=== PATIENT | female | born 1995 | race Caucasian/White ===

== ENCOUNTER 2019-12-15 17:54 | Outpatient (REF) | payer SELFPAY | END 2019-12-15 17:55 | disposition home or self-care (01) | LOC: HO.LAB 17:54 | PROVIDERS: Visit Provider Internal Medicine | DX: Z20.828 Contact with and (suspected) exposure to other viral communicable diseases (principal) | CPT/HCPCS: C9803; U0003 ==

== ENCOUNTER 2022-09-15 15:20 | Outpatient (REF) | payer MEDICAID, SELFPAY ==
[2022-09-15 17:44] LABS: MANUAL DIFF FLAG NO
[2022-09-15 17:58] LABS: Basophils Absolute Auto 0.1 X10*3/uL (0.0-0.2); Basophils Percent Auto 0.6 % (0-2); Eosinophils Absolute Auto 0.1 X10*3/uL (0.0-0.4); Eosinophils Percent Auto 0.5 % (0-4); Hematocrit 44.4 % (37.0-47.0); Hemoglobin 14.4 g/dl (12.0-16.0); Imm Gran Abs Auto 0.01 X10*3/uL (0.00-0.03); Imm Gran Pct Auto 0.1 % (0.0-0.4); Lymphocytes Absolute Auto 2.4 X10*3/uL (1.2-4.9); Lymphocytes Percent Auto 25.3 % (20-40); Mean Corpuscular HGB Conc 32.4 g/dl (31.0-35.0); Mean Corpuscular Hemoglobin 29.7 pg (27.0-33.0); Mean Corpuscular Volume 91.5 fL (80.0-98.0); Mean Platelet Volume 11.3 fL (9.4-12.3); Monocytes Absolute Auto 0.9 X10*3/uL (0.1-1.2); Monocytes Percent Auto 9.9 % (2-11); Neutrophils Absolute Auto 5.9 x10*3/uL (2.0-8.3); Neutrophils Percent Auto 63.6 % (45-73); Platelet Count 362 X10*3/uL (160-400); Red Blood Count 4.85 X10*6/uL (4.20-5.50); Red Cell Distribution Width 12.8 % (11.0-16.0); White Blood Count 9.3 X10*3/uL (4.8-10.8)
[2022-09-15 18:14] LABS: Alanine Aminotransferase 40 U/L (0-31); Albumin Level 4.3 g/dL (3.5-5.0); Alkaline Phosphatase 78 U/L (39-117); Anion Gap 15 (12-20); Aspartate Amino Transferase 28 U/L (5-31); Bilirubin Total 0.4 mg/dL (0.0-1.0); Blood Urea Nitrogen 11 mg/dL (9-16); Calcium 10.1 mg/dL (8.4-10.2); Carbon Dioxide 23 mmol/L (22-29); Chloride 107 mmol/L (96-108); Cholesterol 162 mg/dL; Estimated Glomerular Filt Rate > 60; Glucose Fasting 77 mg/dL (60-99); HDL Cholesterol 43 mg/dL; LDL Cholesterol Calculated 103 mg/dl; Potassium 3.8 mmol/L (3.3-5.1); Sodium 141 mmol/L (135-145); Total Protein 7.9 g/dL (6.5-8.0); Triglycerides 83 mg/dL
[2022-09-15 18:29] LABS: TSH reflex Free T4 0.86 uIU/mL (0.32-4.0)
[2022-09-21 10:48] LABS: Testosterone, Free 11.9 pg/mL (0.1-6.4); Testosterone, Total 76 ng/dL (2-45)
== END 2022-09-15 15:21 | disposition home or self-care (01) ==
LOC: HO.CHCLDS 15:20
PROVIDERS: Visit Provider Family Medicine
DX: E66.01 Morbid (severe) obesity due to excess calories (principal); Z68.43 Body mass index [BMI] 50.0-59.9, adult; N93.9 Abnormal uterine and vaginal bleeding, unspecified
CPT/HCPCS: 36415; 80053; 80061; 84146; 84402; 84403; 84443; 85025

== ENCOUNTER 2022-10-17 15:39 | Outpatient (REF) | payer MEDICAID, SELFPAY ==
[2022-10-17 20:57] LABS: Alanine Aminotransferase 34 U/L (0-31); Albumin Level 3.7 g/dL (3.5-5.0); Alkaline Phosphatase 76 U/L (39-117); Anion Gap 16 (12-20); Aspartate Amino Transferase 27 U/L (5-31); Bilirubin Total 0.3 mg/dL (0.0-1.0); Blood Urea Nitrogen 8 mg/dL (9-16); Carbon Dioxide 22 mmol/L (22-29); Chloride 107 mmol/L (96-108); Estimated Glomerular Filt Rate > 60; Glucose Random 57 mg/dL (60-115); Potassium 3.5 mmol/L (3.3-5.1); Sodium 141 mmol/L (135-145); Total Protein 7.7 g/dL (6.5-8.0)
[2022-10-21 03:34] LABS: HPV mRNA E6/E7 rflx Not Detected (Not Detected)
== END 2022-10-17 15:40 | disposition home or self-care (01) ==
LOC: HO.CHCLDS 15:39
PROVIDERS: Visit Provider Family Medicine
DX: Z12.4 Encounter for screening for malignant neoplasm of cervix (principal); Z11.51 Encounter for screening for human papillomavirus (HPV); R74.01 Elevation of levels of liver transaminase levels
CPT/HCPCS: 36415; 80053; 87624; 88142

== ENCOUNTER 2022-10-20 14:48 | Outpatient (REF) | payer MEDICAID, SELFPAY ==
[2022-10-20 17:52] LABS: Gamma Glutamyl Transpeptidase 55 U/L (7-33); Glucose Random 80 mg/dL (60-115)
[2022-10-21 04:08] LABS: HBsAGNum1 0.35 S/CO (0.00-0.99); Hepatitis B Surface Antigen Negative (Negative); ~HepC Num1 0.07 S/CO (0.00-0.79); ~Hepatitis C Antibody Nonreactive (Nonreactive)
== END 2022-10-20 14:49 | disposition home or self-care (01) ==
LOC: HO.CHCLDS 14:48
PROVIDERS: Visit Provider Family Medicine
DX: R74.01 Elevation of levels of liver transaminase levels (principal)
CPT/HCPCS: 36415; 82947; 82977; 86803; 87340

== ENCOUNTER 2022-11-14 09:33 | Outpatient (REF) | payer MEDICAID, SELFPAY | END 2022-11-14 09:34 | disposition home or self-care (01) | LOC: HO.US 09:33 | PROVIDERS: Visit Provider Family Medicine | DX: R74.01 Elevation of levels of liver transaminase levels (principal) | CPT/HCPCS: 76700 ==

== ENCOUNTER 2023-04-30 18:20 | Outpatient (REF) | payer MEDICAID, SELFPAY ==
[2023-05-01 07:00] LABS: CT PCR NOT DETECTED (Not Detect.); NG PCR NOT DETECTED (Not Detect.)
== END 2023-04-30 18:21 | disposition home or self-care (01) ==
LOC: HO.HHCLNP 18:20
PROVIDERS: Visit Provider Advanced Practice Midwife
DX: Z11.3 Encounter for screening for infections with a predominantly sexual mode of transmission (principal)
CPT/HCPCS: 0353U

== ENCOUNTER 2024-07-07 15:17 | Outpatient (REF) | payer MEDICAID, SELFPAY ==
--- OUTSIDE RECORDS SUMMARY | 2024-07-07 16:29 | XMS_ITS | Encounter Summary ---
Author Organization [employer] Address [address] [place] [address] Care Team Providers Care Chemic Mangler Name Role Phone Angle Higgins MD Primary Care Provider [phone] Encounter Details Date Type Department Care Team ([facility] Contact Info) Description 09/25/2023 Orders Only [facility] CHC MED & PEDS [address] [place], [place] [phone] Angle Higgins MD [address] [place], [place] [phone] Social History Tobacco Use Types Packs/Day Years Used Date Smoking Tobacco: Never Passive Smoke Exposure: Never Smokeless Tobacco: Never Alcohol Use Standard Drinks/Week Comments Never 0 (1 standard drink = 0.6 oz pur e alcohol) Depression Answer Date Recorded Patient Health Questionnaire-9 Score 0 09/15/2022 Housing Stability Answer Date Recorded What is your housing situation today? I have donovanberry roe 11/29/[address] you li ve. Do you have problems with any of the following? None of the above 11/29/2022 Food Insecurity Answer Date Recorded Within the past 12 months, y ou worried that your food would run out before you got money to buy more: Never True 11/29/2022 Within the past 12 months,th e food you bought just didn't last and you didn't have enough money to get more: Never True Transportation Answer Date Recorded In the past 12 months, has l ack of transportation kept you from medical appts, meetings, work or from getting things needed for daily living? No 11/29/2022 Utilities Answer Date Recorded In the past 12 months, has t he electric, gas, oil or water [employer] threatened to shut off services in your home? No 11/29/2022 Depression Answer Date Recorded Patient Health Questionnaire-2 Score 0 09/15/2022 Comments Unknown Sex and Gender Information Value Date Recorded Sex Assigned at Female 12/05/2021 10:17 AM EDT Legal Sex Female 10:17 AM EDT Gender Identity Female 12/05/2021 10:17 AM EDT Sexual Orientation Bisexual 12/05/2021 10 :17 AM EDT documented as of this encounter Plan of Treatment Upcoming Encounters Date Type Department Care Team (Late st Contact Info) Description 07/17/2024 1:15 PM EDT Office Visit [facility] MEDICINE [address] [place] [address] Lena Worthington CNM [address] [place] [address] 07/25/2024 2:00 PM EDT Office Visit [facility] CHC ADULT DENTAL [address] [place] [address] Guillermo Durand documented as of this encounter Visit Diagnoses Not on filedocumented in this encounter Additional Health Concerns Assessment Noted Time PHQ-9 Depression Total Score: 0 09/16/19 23 2:44 PM EDT documented as of this encounter Care Teams Chemic Mangler Relationship Specialty Start Date End Date Angle Higgins MD [address] [place] [id number] PCP - General Family Medicine 04/25/21 documented as of this encounter
[2024-07-07 17:36] LABS: MANUAL DIFF FLAG NO
[2024-07-07 18:09] LABS: Alanine Aminotransferase 23 U/L (0-31); Alkaline Phosphatase 75 U/L (39-117); Anion Gap 13 (12-20); Aspartate Amino Transferase 33 U/L (5-31); Bilirubin Total 0.3 mg/dL (0.0-1.0); Blood Urea Nitrogen 13 mg/dL (9-16); Calcium 9.4 mg/dL (8.4-10.2); Carbon Dioxide 21 mmol/L (22-29); Chloride 111 mmol/L (96-108); Estimated Glomerular Filt Rate > 60; Glucose Random 82 mg/dL (60-115); Sodium 141 mmol/L (135-145); Total Protein 7.5 g/dL (6.5-8.0)
[2024-07-07 18:26] LABS: TSH reflex Free T4 0.87 uIU/mL (0.32-4.0)
[2024-07-07 18:42] LABS: Insulin 12 uU/mL (2-29)
[2024-07-07 19:21] LABS: Basophils Percent Auto 0.5 % (0-2); Eosinophils Absolute Auto 0.1 X10*3/uL (0.0-0.4); Eosinophils Percent Auto 0.7 % (0-4); Hematocrit 41.4 % (37.0-47.0); Hemoglobin 14.2 g/dl (12.0-16.0); Imm Gran Abs Auto 0.03 X10*3/uL (0.00-0.03); Imm Gran Pct Auto 0.3 % (0.0-0.4); Lymphocytes Absolute Auto 1.9 X10*3/uL (1.2-4.9); Lymphocytes Percent Auto 21.1 % (20-40); Mean Corpuscular HGB Conc 34.3 g/dl (31.0-35.0); Mean Corpuscular Hemoglobin 30.7 pg (27.0-33.0); Mean Corpuscular Volume 89.4 fL (80.0-98.0); Mean Platelet Volume 11.8 fL (9.4-12.3); Monocytes Absolute Auto 0.8 X10*3/uL (0.1-1.2); Monocytes Percent Auto 8.9 % (2-11); Neutrophils Absolute Auto 6.1 x10*3/uL (2.0-8.3); Neutrophils Percent Auto 68.5 % (45-73); Platelet Count 365 X10*3/uL (160-400); Red Blood Count 4.63 X10*6/uL (4.20-5.50); Red Cell Distribution Width 13.2 % (11.0-16.0); White Blood Count 8.9 X10*3/uL (4.8-10.8)
[2024-07-08 08:14] LABS: HIV AB/AG Nonreactive (Nonreactive); HIV Num 1 0.05 S/CO (0.00-0.99)
== END 2024-07-07 15:18 | disposition home or self-care (01) ==
LOC: HO.CHCLDS 15:17
PROVIDERS: Visit Provider Family Medicine
DX: Z13.9 Encounter for screening, unspecified (principal); E66.813 Obesity, class 3; Z68.43 Body mass index [BMI] 50.0-59.9, adult
CPT/HCPCS: 36415; 80053; 83525; 84443; 85025; 87389

== ENCOUNTER 2024-08-01 14:47 | Outpatient (REF) | payer MEDICAID, SELFPAY ==
--- OUTSIDE RECORDS SUMMARY | 2024-08-01 15:04 | XMS_ITS | Encounter Summary ---
Author Organization [employer] Address [address] [place] [address] Care Team Providers Care Geological Engineer Name Role Phone Angle Higgins MD Primary Care Provider [phone] Encounter Details Date Type Department Care Team ([facility] Contact Info) Description 09/25/2023 Orders Only [facility] CHC MED & PEDS [address] [place], [place] [phone] Angle Higgins MD [address] [place], [place] [phone] Social History Tobacco Use Types Packs/Day Years [...] t he electric, gas, oil or water [employer] threatened to shut off services in your [...] Care Team (Late st Contact Info) Description 08/26/2024 3:00 PM EDT Office Visit [facility] ADULT DENTAL [address] [place] [address] Guillermo Durand documented as of this encounter Visit Diagnoses Not on filedocumented in this encounter Additional Health Concerns Assessment Noted Time PHQ-9 Depression Total Score: 0 09/16/19 23 2:44 PM EDT documented as of this encounter Care Teams Geological Engineer Relationship Specialty Start Date End Date Angle Higgins MD [address] [place] [id number] PCP - General Family Medicine 04/25/21 documented as of this encounter
[2024-08-01 17:36] LABS: Prothrombin Time 11.9 SEC (10.9-12.4)
[2024-08-01 17:37] LABS: Estimated Average Glucose 103 mg/dL; Hemoglobin A1c % 5.2 % (<6.0); Total Hemoglobin (HGBA1C) 3607.8771 umol/L
[2024-08-01 17:39] LABS: Partial Thromboplastin Time 33.7 SEC (26.0-36.8)
[2024-08-01 17:50] LABS: Cholesterol 148 mg/dL (<200); HDL Cholesterol 41 mg/dL (>40); Iron 92 mcg/dL (30-160); LDL Cholesterol Calculated 88 mg/dL (<100); Percent Iron Saturation 46 % (15-50); Total Iron Binding Capacity 202 mcg/dL (228-428); Triglycerides 99 mg/dL (<150); Unsaturated Iron Binding 110 ug/dL
[2024-08-01 18:04] LABS: Ferritin 91 ng/mL (10-122)
[2024-08-02 09:51] LABS: Hepatitis A Antibody IgG Nonreactive (Nonreactive); Hepatitis A Antibody IgM 0.18 Index (0-0.79); ~Hepatitis A Antibody IgG 0.46 S/CO (0.00-0.99); ~Hepatitis A Antibody IgM Nonreactive (Nonreactive)
[2024-08-02 09:56] LABS: HBS Num1 0.53 mIU/mL (0-7.99); HBc Num1 0.06 S/CO (0.00-0.79); HBsAGNum1 0.59 S/CO (0.00-0.99); Hepatitis B Core Antibody Nonreactive (Nonreactive); Hepatitis B Surface Antigen Negative (Negative); ~HepC Num1 0.11 S/CO (0.00-0.79); ~Hepatitis B Surface Antibody NONREACTIVE (Nonreactive); ~Hepatitis C Antibody Nonreactive (Nonreactive)
== END 2024-08-01 14:48 | disposition home or self-care (01) ==
LOC: HO.CHCLDS 14:47
PROVIDERS: Visit Provider Family Medicine
DX: R74.01 Elevation of levels of liver transaminase levels (principal)
CPT/HCPCS: 36415; 80061; 82728; 83036; 83540; 85610; 85730; 86704; 86706; 86708; 86709; 86803; 87340

== ENCOUNTER 2024-12-03 14:15 | Outpatient (REF) | payer MEDICAID, SELFPAY ==
--- NOTE | ~2024-12-03 | US_ITS ---
EXAMINATION: US COMPLETE ABDOMEN WITH LIVER ELASTOGRAPHY CLINICAL INFORMATION: 29 yo F with persistent transaminitis COMPARISON: None available. TECHNIQUE: Real-time imaging of the abdominal viscera. Noninvasive ultrasound liver fibrosis assessment is performed using Raquel ElastPQ point quantification shear wave elastography (pSWE) with a C5-2 MHz transducer. Multiple elastography samples are obtained. FINDINGS: PANCREAS: The visualized pancreatic head and body are normal in appearance. The remainder of the pancreas is obscured from visualization by the overlying bowel gas. ABDOMINAL AORTA: No aortic aneurysm is seen. INFERIOR VENA CAVA: Visualized portions are normal. LIVER: The liver demonstrates increased echogenicity. The right lobe measures 20 cm in length. The left lobe measures 10 cm in length. The main portal vein is patent with a normal direction of flow and a continuous venous waveform. Shear wave liver elastography median stiffness is 0.95 m/s (reference: normal median stiffness is 1.3 m/s or less). IQR/median stiffness to assess sampling precision is 0.18 (reference: good quality data set is IQR/median stiffness of 0.15 or less). GALLBLADDER: The gallbladder is physiologically distended without evidence of stones, sludge, polyps, wall thickening or pericholecystic fluid. COMMON BILE DUCT: Normal in caliber measuring 0.4 cm in diameter. RIGHT KIDNEY: No hydronephrosis. No renal calculi or focal parenchymal lesions. The kidney measures 10 cm in maximum dimension. LEFT KIDNEY: No hydronephrosis. No renal calculi or focal parenchymal lesions. The kidney measures 11.6 cm in maximum dimension. SPLEEN: Unremarkable. The spleen measures 11 cm in maximum dimension. FREE FLUID: None seen. US/US abdomen comp w elastography IMPRESSION: 1. Echogenic enlarged liver suggest hepatic steatosis/hepatic parenchymal disease. 2. Liver elastography: Although measurements suggest a high probability of normal liver stiffness, there is statistical variability of the sampling which decreases accuracy. REFERENCE: Society of [employer] in Ultrasound Liver Stiffness Thresholds (2020): LIVER STIFFNESS THRESHOLDS: *Liver Stiffness equal or less than 1.3 m/s: High probability of being normal. *Liver Stiffness less than 1.7 m/s: In the absence of other known clinical signs, rules out compensated advanced chronic liver disease. *Liver Stiffness 1.7-2.1 m/s: Suggestive of compensated advanced chronic liver disease but need further test for confirmation. *Liver Stiffness over 2.1 m/s: Rules in compensated advanced chronic liver disease. *Liver Stiffness over 2.4 m/s: Suggestive of clinically significant portal hypertension. QUALITY OF DATA SET: *IQR/Median value equal or less than 0.15 implies a quality data set. *IQR/Median value over 0.15 implies a poor quality data set. SIGNIFICANT CHANGE FROM PRIOR EXAM: Significant change if liver stiffness measurement is 10% or greater from prior exam. OTHER CONSIDERATIONS: The stage of liver fibrosis may be overestimated in the setting of acute hepatitis, liver inflammation, elevated liver function tests, hepatic vascular congestion, obstructive cholestasis, non-fasting state, and infiltrative diseases such as amyloidosis and lymphoma. In some patients with NAFLD, the liver stiffness thresholds for compensated advanced chronic liver disease may be lower. In causes other than viral hepatitis and NAFLD, liver stiffness thresholds are not well established. Electronically signed by: Nilesh Cantu MD 12/03/2024 03:34 PM EDT
--- OUTSIDE RECORDS SUMMARY | 2024-12-03 18:26 | XMS_ITS | Encounter Summary ---
Author Organization [employer] Address [address] [place] [address] Care Team Providers Care Ground Service Equipment Mechanic Name Role Phone Angle Higgins MD Primary Care Provider [phone] Reason for Visit * Reason Comments Med Refill Encounter Details Date Type Department Care Team ([facility] Contact Info) Description 09/11/2024 Refill [facility] CHC ADULT DENTAL [address] [place], [place] [phone] Jarett Ramirez, DMD [address] [place] [address] Social History Tobacco Use Types Packs/Day Years Used Date Smoking Tobacco: Never Passive Smoke Exposure: Never Smokeless Tobacco: Never Alcohol Use Standard Drinks/Week Comments Yes 0 (1 standard drink = 0.6 oz pur e alcohol) Social irregular Depression Answer Date Recorded Patient Health Questionnaire-9 Score 8 07/07/2024 Patient Health Questionnaire-9 Score 8 07/07/2024 Last PHQ-9: Questionnaire Data Not on file 0 07/07/2024 Housing Stability Answer Date Recorded What is your housing situation today? I have donovan roe 07/07/[address] you li ve. Do you have problems with any of the following? None of the above 07/07/2024 Food Insecurity Answer Date Recorded Within the past 12 months, y ou worried that your food would run out before you got money to buy more: Never True 07/07/2024 Within the past 12 months,th e food you bought just didn't last and you didn't have enough money to get more: Never True 03/2024 Transportation Answer Date Recorded In the past 12 months, has l ack of transportation kept you from medical appts, meetings, work or from getting things needed for daily living? No 07/07/2024 Utilities Answer Date Recorded In the past 12 months, has t he electric, gas, oil or water company threatened to shut off services in your home? No 07/07/2024 Depression Answer Date Recorded Patient Health Questionnaire-2 Score 2 07/07/2024 Internet Access Answer Date Recorded Internet Access Q1 Yes 07/07/2024 Internet Access Q2 Not on file 07/07/2024 Comments Unknown Sex and Gender Information Value Date Recorded Sex Assigned at Female 12/05/2021 10:17 AM EDT Legal Sex Female 10:17 AM EDT Gender Identity Female 12/05/2021 10:17 AM EDT Sexual Orientation Bisexual 12/05/2021 10 :17 AM EDT documented as of this encounter Miscellaneous Notes * Telephone Encounter - Jarett Ramirez DMD - 09/12/2024 10:33 AM EDT Approving, but needs appt for additional refills. documented in this encounter Plan of Treatment Not on file documented as of this encounter Visit Diagnoses Not on filedocumented in this encounter Additional Health Concerns Assessment Noted Time PHQ-9 Depression Total Score: 8 07/08/19 25 2:42 PM EDT documented as of this encounter Care Teams Ground Service Equipment Mechanic Relationship Specialty Start Date End Date Angle Higgins MD [address] [place] [address] PCP - General Family Medicine 04/25/21 documented as of this encounter
--- OUTSIDE RECORDS SUMMARY | 2024-12-03 18:26 | XMS_ITS | Encounter Summary ---
Author Organization [employer] Address [address] [place] [address] Care Team Providers Care Mingle Operator Name Role Phone Angle Higgins MD Primary Care Provider [phone] Reason for Visit * Reason Onset Date Comments Nurse Triage 05/06/2024 Encounter Details Date Type Department Care Team ([facility] st Contact Info) Description 05/06/2024 Telephone [facility] MEDICINE [address] [place] [address] Angle Higgins MD [address] [place] [address] Nurse Triage Social History Tobacco Use Types Packs/Day Years [...] encounter Miscellaneous Notes * Telephone Encounter - Yun Tobin - 05/06/2024 3:56 PM EDT Symptom: COVID-19 Suspected, Runny nose Outcome: Schedule a same-day appointment or talk to a nurse or provider today Reason: Caller denied all higher acuity questions The caller accepted this outcome. [phone] documented in this encounter Plan of Treatment Not on file documented as of this encounter Visit Diagnoses Not on filedocumented in this encounter Additional Health Concerns Assessment Noted Time PHQ-9 Depression Total Score: 0 09/16/19 23 2:44 PM EDT documented as of this encounter Care Teams Mingle Operator Relationship Specialty Start Date End Date Angle Higgins MD [address] [place] [address] PCP - General Family Medicine 04/25/21 documented as of this encounter
--- OUTSIDE RECORDS SUMMARY | 2024-12-03 18:26 | XMS_ITS | Encounter Summary ---
Author Organization [employer] Address [address] [place] [address] Care Team Providers Care Healthcare Sales Representative Name Role Phone Angle Higgins MD Primary Care Provider [phone] Encounter Details Date Type Department Care Team ([facility] st Contact Info) Description 09/25/2023 Orders Only [facility] CHC MED & PEDS [address] [place] [address] Angle Higgins MD [address] [place] [address] Social History Tobacco Use Types Packs/Day Years Used Date Smoking Tobacco: Never Passive Smoke Exposure: Never Smokeless Tobacco: Never Alcohol Use Standard Drinks/Week Comments Never 0 (1 standard drink = 0.6 oz pur e alcohol) Depression Answer Date Recorded Patient Health Questionnaire-9 Score 0 09/15/2022 Housing Stability Answer Date Recorded What is your housing situation today? I have donovan roe 11/29/[address] you [...] as of this encounter Plan of Treatment Not on file documented as of this encounter Visit Diagnoses Not on filedocumented in this encounter Additional Health Concerns Assessment Noted Time PHQ-9 Depression Total Score: 0 09/16/19 23 2:44 PM EDT documented as of this encounter Care Teams Healthcare Sales Representative Relationship Specialty Start Date End Date Angle Higgins MD [address] [place] [address] PCP - General Family Medicine 04/25/21 documented as of this encounter
--- OUTSIDE RECORDS SUMMARY | 2024-12-03 18:26 | XMS_ITS | Encounter Summary ---
Author Organization [employer] Address [address] [place] [address] Care Team Providers Care Home Sales Service Professional Name Role Phone Angle Higgins MD Primary Care Provider [phone] Reason for Visit * Reason Onset Date Comments Appointment Request 06/13/2024 Encounter Details Date Type Department Care Team ([facility] Contact Info) Description 06/13/2024 Telephone [facility] MEDICINE [address] [place] [address] Angle Higgins MD [address] [place] [address] Appointment Request Social History Tobacco Use Types Packs/Day Years [...] * Telephone Encounter - Yun Tobin - 06/13/2024 11:54 AM EDT Tc from pt requesting pe appointment with pcp. documented in this encounter Plan of Treatment Not on file documented as of this encounter Visit Diagnoses Not on filedocumented in this encounter Additional Health Concerns Assessment Noted Time PHQ-9 Depression Total Score: 0 09/16/19 23 2:44 PM EDT documented as of this encounter Care Teams Home Sales Service Professional Relationship Specialty Start Date End Date Angle Higgins MD [address] [place] [address] PCP - General Family Medicine 04/25/21 documented as of this encounter
--- OUTSIDE RECORDS SUMMARY | 2024-12-03 18:26 | XMS_ITS | Clinical Summary ---
Author Organization [facility] it[facility] Address [address] [place] [address] Care Team Providers Care Ticket Marker Name Role Phone Unavailable Primary Care Provider Unavailabl e Social History Tobacco Use Types Packs/Day Years Used Date Smoking Tobacco: Never Assessed Comments Unknown Sex and Gender Information Value Date Recorded Sex Assigned at Not on file Legal Sex Female 1:55 PM EST Gender Identity Not on file Sexual Orientation Not on file Plan of Treatment Health Maintenance Due Date Last Done Comments DTaP,Tdap,and Td Vaccines (1 - Tdap) 05/05/2015 Hepatitis B Vaccines (1 of 3 - 19+ 3-dose series) 05/05/2015 Cervical Cancer Screening: P ap Smear 2017 HPV Vaccines (1 - 3-dose SCD M series) 05/05/2023 Depression Screening 02/06/2024 COVID-19 Vaccine ( - 2023-2 5 season) 2024 Influenza Vaccine (#1) 2024 RSV Immunization Adult Patie nts (1 - 1-dose 75+ series) 05/05/2071 HIB Vaccines Aged Out No longer eligi ble based on patient's age to complete this topic Hepatitis A Vaccines Aged Out No long er eligible based on patient's age to complete this topic IPV Vaccines Aged Out No longer eligi ble based on patient's age to complete this topic MMR Vaccines Aged Out No longer eligi ble based on patient's age to complete this topic Meningococcal ACWY Vaccine Aged Out N o longer eligible based on patient's age to complete this topic Meningococcal B Vaccine Aged Out No l onger eligible based on patient's age to complete this topic Pneumococcal Vaccine: Pediat rics (0 to 5 Years) and At-Risk Patients (6 to 49 Years) Aged Out No longer eligible b ased on patient's age to complete this topic RSV Immunization Patients Un riccardo 20 months Aged Out No longer eligible b ased on patient's age to complete this topic Varicella Vaccines Aged Out No longer eligible based on patient's age to complete this topic
--- OUTSIDE RECORDS SUMMARY | 2024-12-03 18:26 | XMS_ITS | Encounter Summary ---
Author Organization [employer] Address [address] [place] [address] Care Team Providers Care Lumpia Wrapper Maker Name Role Phone Angle Higgins MD Primary Care Provider [phone] Reason for Visit * Reason Onset Date Comments Appointment Request 04/24/2023 Encounter Details Date Type Department Care Team ([facility] Contact Info) Description 04/24/2023 Telephone [facility] CHC MED & PEDS [address] [place], [place] [phone] Angle Higgins MD [address] [place], [place] [phone] Appointment Request Social History Tobacco Use Types Packs/Day Years Used Date Smoking Tobacco: Never Passive Smoke Exposure: Never Smokeless Tobacco: Never Depression Answer Date Recorded Patient Health Questionnaire-9 [...] encounter Miscellaneous Notes * Telephone Encounter - Elda Pierce - 04/24/2023 12:32 PM EDT Tc from pt requesting to r/s 04/17/23 appt with robi . documented in this encounter Plan of Treatment Not on file documented as of this encounter Visit Diagnoses Not on filedocumented in this encounter Additional Health Concerns Assessment Noted Time PHQ-9 Depression Total Score: 0 09/16/19 23 2:44 PM EDT documented as of this encounter Care Teams Lumpia Wrapper Maker Relationship Specialty Start Date End Date Angle Higgins MD [address] [place] [address] PCP - General Family Medicine 04/25/21 documented as of this encounter
--- OUTSIDE RECORDS SUMMARY | 2024-12-03 18:26 | XMS_ITS | Clinical Summary ---
Author Organization [employer] Address [address] [place] [address] Care Team Providers Care National Account Manager Name Role Phone Angle Higgins MD Primary Care Provider [phone] Allergies Active Allergy Reactions Criticality Noted Date Comments Amoxicillin Rash Low 05/13/2024 Medications Drospirenone (Slynd) 4 MG tablet Take 1 tablet by mouth Once per day. 28 tablet 11 4 Active naproxen (Naprosyn) 500 MG tabletIndications :Acute cough,Pharyngitis due to Streptococcus species TAKE 1 TABLET(500 MG) BY MOUTH TWICE DAILY 60 tablet 5 Active albuterol 108 (90 Base) MCG/ACT inhalerIndication s:Mild intermittent asthma without complication Inhale 2 puffs every 4 (four) hours if needed for wheezing. 18 g 3 5 Active Sodium Fluoride 5000 Plus 1.1 % cream BRUSH TEETH FOR 2 MINUTES EVERY MORNING AND EVERY EVENING; SPIT AND DO NOT RINSE; DO NOT EAT OR DRINK ANYTHING FOR 30 MINUTES FOLLOWING BRUSHING 102 g 5 Active Additional Information Patient not taking.Reported on 09/25/2024 Active Problems Problem Noted Date Diagnosed Date Annual physical exam 07/08/2024 Assessment & Plan (07/08/2024 8:02 AM EDT): 29 y.o. female here for annual physical examination Reviewed BMI and BP with patient. Nutritional recommendations: Recommended to decrease soda and sugary beverage consumption. Recommended at least 20 g per meal of protein to assist with satiety. Exercise recommendations: Recommended at least 150 min/week of moderate intensity exercise. screen done and reviewed Care Gaps reviewed IZ reviewed and discussed w/ patient Updated/reviewed PMH, Surghx, Family Hx & Social Hx Enlarged tonsils 07/07/2024 Assessment & Plan (07/08/2024 8:02 AM EDT): Noticed on exam,. Patient had previous sleep study which was negative. Does report snoring and frequent sore throat. Will refer to ENT for further evaluation. PCOS (polycystic ovarian syndrome) 10/17/2022 Assessment & Plan (10/31/2022 8:25 AM EDT): Prior dx with PCOS, rx progesterone only pill, given other risk factors, she will benefit of hormonal IUD. Recommended patient to explore other birthcontrol methods, and advise provider of any future side effects. Abnormal vaginal bleeding 01/21/2014 Assessment & Plan (03/19/2023 3:19 PM EST): I referred patient to [facility] for abnormal menstrual cycle bleeding. Obesity 01/17/2012 Assessment & Plan (07/07/2024 5:23 PM EDT): Patient's weight is a concern, as evidenced by the discussion of weight loss medications. [facility], providing an opportunity for pharmacological intervention if desired by the patient. Assessment & Plan (03/19/2023 3:18 PM EST): I informed the patient she has a fatty liver based on her liver imaging. Discussed calorie deficit, recommended reduction of 20-30% of maintenance calories; Recommended to decrease soda and sugary beverage consumption. Recommended at least 20 g per meal of protein to assist with satiety. Recommended at least 150 min/week of moderate intensity exercise. Assessment & Plan (09/15/2022 3:18 PM EDT): Will send labs to check levels. Resolved Problems Problem Noted Date Diagnosed Date Resolved Date Viral upper respiratory tract infection 10/22/2023 07/07/2024 Assessment & Plan (10/22/2023 4:18 PM EDT): Take Flonase nasal daily + Mucinex bid prn severe cough Rest (sleep at least 8 hours a night). Hydrate with plenty of water (avoid caffeine and alcohol). Use saline nose drops to loosen mucus Take Acetaminophen (Tylenol )/Ibuprofen as needed to reduce fever, headache, body aches or discomfort Gargle with salt water and use throat sprays/lozenges for throat pain. Use heated, humidified air. If you do not have a humidifier, take hot showers. Cover coughs and sneezes using the crook of your elbow. Advised to be out of work if sxs persist more than 2d, should also re test for covid ( covid test kit provided today) Chronic nonintractable headache 03/19/2023 07/07/2024 Assessment & Plan (03/19/2023 12:01 PM EST): I prescribed the patient Topamax 50 mg for headaches. I scheduled a follow-up in 6 weeks and if headaches persist or worsen I will refer her to neurologist. Cervical cancer screening 10/17/2022 Assessment & Plan (10/31/2022 8:24 AM EDT): Patient had pap smear, if normal repeat in 3 yrs following ASCCP guidelines. Allergic rhinitis 01/21/2014 07/07/2024 Obstructive sleep apnea syndrome 02/16/2012 07/07/2024 Low vision, both eyes 01/17/20122024 Assessment & Plan (09/15/2022 3:20 PM EDT): Associated with headaches. Will refer to optometry for further evaluation. Large tonsils 01/17/2012 07/07/2024 Finding of above normal blood pressure 01/17/2012 07/07/2024 Encounters Date Type Department Care Team Description 09/25/2024 2:00 PM EDT Office Visit [facility] [address] [place] [address] Donaldo Chappell 09/11/2024 Refill [facility] [address] [place] [address] Jarett Ramirez DMD from Last 3 Months Immunizations Immunization Administration Dates Next Due DTaP 11/05/2001, 8,1996,09/05,1996 HPV, Quadrivalent 01/21/2014,10/14/2009 Hep B, Adolescent or Pediatric 1996,1996,1996 HiB, unspecified 12/07/1997,1996, 7 Hib (PRP-T) 1996 IPV 11/05/2001, 7,1996,06/05 Influenza injectable quadriv alent preservative free 03/19/2023,04/25/2021 Influenza, Split (incl. kiah fied surface antigen) 01/17/2012 Influenza, injectable, quadr ivalent, preservative free, pediatric 01/21/2014 MMR 11/05/2001,12/07/1997 Meningococcal MCV4P ACYW-135 01/21/2014 Tdap 07/07/2024,01/21/2014,10/14/2009 Varicella 10/14/2009,06/14/1999 Family History Medical History Relation Name Comments Arthritis Mother Diabetes Mother Hypertension Mother Relation Name Status Comments Mother Social History Tobacco Use Types Packs/Day Years Used Date Smoking Tobacco: Never Passive Smoke Exposure: Never Smokeless Tobacco: Never Tobacco Cessation:Counseling Given: Not Answered Alcohol Use Standard Drinks/Week Comments Yes 0 [...] Orientation Bisexual 12/05/2021 10 :17 AM EDT Last Filed Vital Signs Vital Sign Reading Time Taken Comments Blood Pressure 126/74 09/25/2024 2:21 PM EDT Pulse 65 08/26/2024 2:59 PM EDT Temperature 36.2 C (97.2 F) 07/07/2024 2:12 PM EDT Respiratory Rate 20 07/07/2024 2:12 PM EDT Oxygen Saturation 98% 07/07/2024 2:12 PM EDT Inhaled Oxygen Concentration - - Weight 131 kg (289 lb 9.6 oz) 07/07/2024 2:12 PM EDT Height 156 cm (5' 1.42 ) 07/07/2024 2:12 PM EDT Body Mass Index 53.98 07/07/2024 2:12 PM EDT Plan of Treatment Health Maintenance Due Date Last Done Comments Disability Screening 1995 Family Planning (PISQ) 05/05/2011 Pneumococcal Vaccine: Pediatrics (0 to 5 Years) and At-Risk Patients (6 to 49) Years (1 of 2 - PCV) 05/05/2015 Dental Oral Exam 12/05/2023 06/04/2023 COVID-19 Vaccine ( season) 2024 11/14/2021, 06/12/2020, 05/15/2020 Influenza Vaccine (#1) 2024 , 04/25/2021, 01/21/2014, Additional history exists Dental Prophylaxis 02/27/2025 08/26/2024, 1 03/26/2023, 06/04/2023 Alcohol/Substance Use Screening 07/07/2025 07/07/2024 Depression Screening 07/07/2025 07/07/2024, 07/08/19 SDOH Screening 07/07/2025 07/07/2024 Dental X-Ray: Bitewings 08/27/2025 08/27/19, 06/04/2023, 06/11/2013 Tobacco Screening 09/25/2025 09/25/2024 Pap Smear 10/18/2025 10/18/2022 Dental X-Ray: Full Mouth 05/14/2027 05/12/2024, 05/07 Lipid Panel 08/01/2029 08/01/2024, 09/05, 04/25/2021 DTaP/Tdap/Td Vaccines (8 - Td or Tdap) 07/07/2034 07/07/2024, 01/21/2014, 10/14/2009, Additional history exists Zoster Vaccines (1 of 2) 2046 RSV Patients and Patients Aged 60 years or older (1 - 1-dose 75+ series) 05/05/2071 Hepatitis B Vaccines Completed 1996, 1996, 1996 HIB Vaccines Completed 12/07/1997, 02/1996, 1996, Additional history exists IPV Vaccines Completed 11/05/2001, 04/1996, 1996, Additional history exists HPV Vaccines Completed 01/21/2014, 10/14/2009 Meningococcal Vaccine Completed 01/21/2014 HIV Screening Completed 07/07/2024 Hepatitis C Screening Completed 08/01/2024, 023 Hepatitis A Vaccines Aged Out No long er eligible based on patient's age to complete this topic Meningococcal B Vaccine Aged Out No l onger eligible based on patient's age to complete this topic RSV under 20 months Aged Out No longe r eligible based on patient's age to complete this topic Rotavirus Vaccines Aged Out No longer eligible based on patient's age to complete this topic Procedures Procedure Name Priority Date/Time Associated Diagnosis Comments US ABDOMEN COMPLETE WITH ELASTOGRAPHY Routine 12/03/2024 3:08 PM EDT Transaminitis CASE PRESENTATION, DETAILED AND EXTENSIVE TREATMENT PLANNING Routine 09/25/2024 2:00 PM EDT 31 O RESIN-BASED COMPOSITE - 1 SURF, POSTERIOR Routine 09/25/2024 2:00 PM EDT PROPHYLAXIS - ADULT Routine 08/26/2024 3 :00 PM EDT BITEWINGS - 4 RADIOGRAPHIC IMAGES Routine 08/26/2024 3:00 PM EDT HEPATITIS C AB W/REFL TO HCV RNA, QN, PCR Routine 08/01/2024 3:00 PM EDT Transaminitis LIPID PANEL, STANDARD Routine 08/01/2024 3:00 PM EDT Transaminitis HIV 1/2 ANTIGEN/ANTIBODY, FOURTH GENERATION W/RFL Routine 07/07/2024 3:19 PM EDT Encounter for health-related screening PANORAMIC RADIOGRAPHIC IMAGE Routine 05/12/2024 3:30 PM EDT PERIODIC ORAL EVALUATION - ESTABLISHED PATIENT Routine 06/04/2023 1:00 PM EDT Dental caries PAP SMEAR Routine 10/18/2022 10:33 AM EDT from Last 3 Months or Most Recently Relevant to Health Maintenance Results * US Abdomen Comp w elastography (12/03/2024 3:08 PM EDT) Anatomical Region Laterality Modality Abdomen Ultrasound 12/03/2024 3:08 PM EDT Narrative 12/03/2024 3:37 PM EDT [place] [address] Ultrasound Report Signed Patient: Rosa Zelaya MR#: [id number] 312 : 1995 Acct:[id number] Age/Sex: 29 / F ADM Date: 12/03/24 Loc: HO.US Attending Dr: Angle Higgins MD Ordering Physician: Angle Higgins MD Date of Service: 12/03/24 Procedure(s): US abdomen comp w elastography Accession Number(s): [id number] cc: Rosie Fernando MD; Angle Higgins MD Reason for Exam: 29 yo F with persistent transaminitis, send to [facility] EXAMINATION: US COMPLETE ABDOMEN WITH LIVER ELASTOGRAPHY CLINICAL INFORMATION: 29 yo F with persistent transaminitis COMPARISON: None available. TECHNIQUE: Real-time imaging of the abdominal viscera. Noninvasive ultrasound liver fibrosis assessment is performed using Raquel ElastPQ point quantification shear wave elastography (pSWE) with a C5-2 MHz transducer. Multiple elastography samples are obtained. FINDINGS: PANCREAS: The visualized pancreatic head and body are normal in appearance. The remainder of the pancreas is obscured from visualization by the overlying bowel gas. ABDOMINAL AORTA: No aortic aneurysm is seen. INFERIOR VENA CAVA: Visualized portions are normal. LIVER: The liver demonstrates increased echogenicity. The right lobe measures 20 cm in length. The left lobe measures 10 cm in length. The main portal vein is patent with a normal direction of flow and a continuous venous waveform. Shear wave liver elastography median stiffness is 0.95 m/s (reference: normal median stiffness is 1.3 m/s or less). IQR/median stiffness to assess sampling precision is 0.18 (reference: good quality data set is IQR/median stiffness of 0.15 or less). GALLBLADDER: The gallbladder is physiologically distended without evidence of stones, sludge, polyps, wall thickening or pericholecystic fluid. COMMON BILE DUCT: Normal in caliber measuring 0.4 cm in diameter. RIGHT KIDNEY: No hydronephrosis. No renal calculi or focal parenchymal lesions. The kidney measures 10 cm in maximum dimension. LEFT KIDNEY: No hydronephrosis. No renal calculi or focal parenchymal lesions. The kidney measures 11.6 cm in maximum dimension. SPLEEN: Unremarkable. The spleen measures 11 cm in maximum dimension. FREE FLUID: None seen. US/US abdomen comp w elastography IMPRESSION: 1. Echogenic enlarged liver suggest hepatic steatosis/hepatic parenchymal disease. 2. Liver elastography: Although measurements suggest a high probability of normal liver stiffness, there is statistical variability of the sampling which decreases accuracy. REFERENCE: Society of [employer] in Ultrasound Liver Stiffness Thresholds (2020): LIVER STIFFNESS THRESHOLDS: *Liver Stiffness equal or less than 1.3 m/s: High probability of being normal. *Liver Stiffness less than 1.7 m/s: In the absence of other known clinical signs, rules out compensated advanced chronic liver disease. *Liver Stiffness 1.7-2.1 m/s: Suggestive of compensated advanced chronic liver disease but need further test for confirmation. *Liver Stiffness over 2.1 m/s: Rules in compensated advanced chronic liver disease. *Liver Stiffness over 2.4 m/s: Suggestive of clinically significant portal hypertension. QUALITY OF DATA SET: *IQR/Median value equal or less than 0.15 implies a quality data set. *IQR/Median value over 0.15 implies a poor quality data set. SIGNIFICANT CHANGE FROM PRIOR EXAM: Significant change if liver stiffness measurement is 10% or greater from prior exam. OTHER CONSIDERATIONS: The stage of liver fibrosis may be overestimated in the setting of acute hepatitis, liver inflammation, elevated liver function tests, hepatic vascular congestion, obstructive cholestasis, non-fasting state, and infiltrative diseases such as amyloidosis and lymphoma. In some patients with NAFLD, the liver stiffness thresholds for compensated advanced chronic liver disease may be lower. In causes other than viral hepatitis and NAFLD, liver stiffness thresholds are not well established. Electronically signed by: Nilesh Cantu MD 12/03/2024 03:34 PM EDT Dictated By: Nilesh Cantu MD Signed By: <Electronically signed by Nilesh aCntu MD in [place]> 12/03/24 1534 DD/ 1508 TD/TT: 12/03/24 1521 [employer] Electronic War[employer] Operator: Procedure Note Donotuseinterpreter, Image - 12/03/2024 [place] [address] Ultrasound Report Signed Patient: Rosa Zelaya LMR#: [id number] : 1995Acct:[id number] Age/Sex: M Date: 12/03/24 Loc: HO.US Attending Dr: Angle Higgins MD Ordering Physician: Angle Higgins MD Date of Service: 12/03/24 Procedure(s): US abdomen comp w elastography Accession Number(s): [id number] cc: Rosie Fernando MD; Angle Higgins MD Reason for Exam: 29 yo F with persistent transaminitis, send to [facility] EXAMINATION: US COMPLETE ABDOMEN WITH LIVER ELASTOGRAPHY CLINICAL INFORMATION: 29 yo F with persistent transaminitis COMPARISON: None available. TECHNIQUE: Real-time imaging of the abdominal viscera. Noninvasive ultrasound liver fibrosis assessment is performed using Raquel ElastPQ point quantification shear wave elastography (pSWE) with a C5-2 MHz transducer. Multiple elastography samples are obtained. FINDINGS: PANCREAS: The visualized pancreatic head and body are normal in appearance. The remainder of the pancreas is obscured from visualization by the overlying bowel gas. ABDOMINAL AORTA: No aortic aneurysm is seen. INFERIOR VENA CAVA: Visualized portions are normal. LIVER: The liver demonstrates increased echogenicity. The right lobe measures 20 cm in length. The left lobe measures 10 cm in length. The main portal vein is patent with a normal direction of flow and a continuous venous waveform. Shear wave liver elastography median stiffness is 0.95 m/s (reference: normal median stiffness is 1.3 m/s or less). IQR/median stiffness to assess sampling precision is 0.18 (reference: good quality data set is IQR/median stiffness of 0.15 or less). GALLBLADDER: The gallbladder is physiologically distended without evidence of stones, sludge, polyps, wall thickening or pericholecystic fluid. COMMON BILE DUCT: Normal in caliber measuring 0.4 cm in diameter. RIGHT KIDNEY: No hydronephrosis. No renal calculi or focal parenchymal lesions. The kidney measures 10 cm in maximum dimension. LEFT KIDNEY: No hydronephrosis. No renal calculi or focal parenchymal lesions. The kidney measures 11.6 cm in maximum dimension. SPLEEN: Unremarkable. The spleen measures 11 cm in maximum dimension. FREE FLUID: None seen. US/US abdomen comp w elastography IMPRESSION: 1. Echogenic enlarged liver suggest hepatic steatosis/hepatic parenchymal disease. 2. Liver elastography: Although measurements suggest a high probability of normal liver stiffness, there is statistical variability of the sampling which decreases accuracy. REFERENCE: Society of [employer] in Ultrasound Liver Stiffness Thresholds (2020): LIVER STIFFNESS THRESHOLDS: *Liver Stiffness equal or less than 1.3 m/s: High probability of being normal. *Liver Stiffness less than 1.7 m/s: In the absence of other known clinical signs, rules out compensated advanced chronic liver disease. *Liver Stiffness 1.7-2.1 m/s: Suggestive of compensated advanced chronic liver disease but need further test for confirmation. *Liver Stiffness over 2.1 m/s: Rules in compensated advanced chronic liver disease. *Liver Stiffness over 2.4 m/s: Suggestive of clinically significant portal hypertension. QUALITY OF DATA SET: *IQR/Median value equal or less than 0.15 implies a quality data set. *IQR/Median value over 0.15 implies a poor quality data set. SIGNIFICANT CHANGE FROM PRIOR EXAM: Significant change if liver stiffness measurement is 10% or greater from prior exam. OTHER CONSIDERATIONS: The stage of liver fibrosis may be overestimated in the setting of acute hepatitis, liver inflammation, elevated liver function tests, hepatic vascular congestion, obstructive cholestasis, non-fasting state, and infiltrative diseases such as amyloidosis and lymphoma. In some patients with NAFLD, the liver stiffness thresholds for compensated advanced chronic liver disease may be lower. In causes other than viral hepatitis and NAFLD, liver stiffness thresholds are not well established. Electronically signed by: Nilesh Cantu MD 12/03/2024 03:34 PM EDT RP Dictated By: Nilesh Cantu MD Signed By: <Electronically signed by Nilesh Cantu MD in [place]> 12/03/24 1534 DD/ 1508 TD/TT: 12/03/24 1521 [employer] Electronic War[employer] Operator: us Angle Higgins MD IMG US PROCEDURES Final Resul t * Hepatitis C Antibody with Reflex to HCV, RNA, Quantitative, Real-Time PCR (08/01/2024 3:00 PM EDT) [facility] Hepatitis C Antibody Nonreactive Nonreactive [facility] Comment:Antibodies to HCV no t detected; does not exclude early acuteHCV infection. Blood Venous blood specimen / Unknown 08/01/2024 3:00 PM EDT 08/01/2024 5:25 PM EDT Angle Higgins MD LAB BLOOD ORDERABLES Final Re sult [facility] [address] [place] [phone] * Lipid Panel, Standard (08/01/2024 3:00 PM EDT) Pathologist [facility] Triglycerides 99 <150 mg/dL [facility] Comment:Desirable Triglyceri de: less than 150 mg/dLBorderline High Triglyceride 150-199 mg/dLHigh Triglyceride: 200-499 mg/dLVery High Triglyceride: greater than or equal to 5OO mg/dL Cholesterol 148 <200 mg/dL [facility] Comment:Desirable Cholestero l: less than 200 mg/dLBorderline High Cholesterol: 200-239 mg/dLHigh Cholesterol: greater than 239 mg/dL LDL Cholesterol Calculated 88 <100 mg/dL [facility] Comment:Desirable LDL: less than 100 mg/dLNear Optimal/Above Optimal LDL: 110- 129 mg/dLBorderline High LDL: 130-159 mg/dLHigh LDL: 160-189 mg/dLVery High LDL: greater than or equal to 190 mg/dL HDL Cholesterol 41 >40 mg/dL [facility] Comment:Desirable HDL: great er than 40 mg/dL Note: This HDL assay may give artificially low results in patients with liver disease. Blood Venous blood specimen / Unknown 08/01/2024 3:00 PM EDT 08/01/2024 5:25 PM EDT us Angle Higgins MD LAB BLOOD ORDERABLES Final Re sult [facility] [address] [place] [phone] * HIV-1/2 Antigen and Antibodies, Fourth Generation, with Reflexes (07/07/2024 3:19 PM EDT) HIV AB/AG Nonreactive Nonreactive [facility] Comment:HIV-1 p24 Ag and/or HIV-1/HIV-2 Ab not detected.A test result that is nonreactive does not exclude thepossibility of exposure to or infection with HIV-1 and/orHIV-2. Nonreactive results in this assay for individualswith prior exposure to HIV-1 and/or HIV-2 may be due toantigen and antibody levels that are below the limit ofdetection of this assay.[employer] HIV Ag/Ab Combo assay result andsupplemental assay results should be interpreted inconjunction with the patient's clinical presentation,history and other laboratory results. If the results areinconsistent with clinical evidence, additional testing issuggested to confirm the result. Blood Venous blood specimen / Unknown 07/07/2024 3:19 PM EDT 07/07/2024 5:35 PM EDT us Angle Higgins MD LAB BLOOD ORDERABLES Final Re sult [facility] [address] [place] [phone] * Pap Smear (10/18/2022 10:33 AM EDT) 10/18/2022 10:3 3 AM EDT 10/19/2022 9:10 AM EDT Narrative [facility] - 10/29/2022 5:25 PM EDT ----- ------- Name: Rosa Zelaya Age/Sex: 27/F : 1995 Unit#: [id number] Attend Dr: Angle Higgins MD Re10/17/22 Status: DEP REF Location: HO.CHCLDS Disch: ----- ------- SPEC : [id number] RECD: 10/19/22 STATUS: MARCO TAMAYO NUM: [id number] NICOLAS: 10/18/22-1033 [facility] DR: Angle Higgins MD ENTERED: 10/19/22-123 SP TYPE: Pap Smr OTHR DR: ORDERED: Pap Smear Interpretation Satisfactory for evaluation. Negative for intraepithelial lesion or malignancy. HPV mRNA E6/E7: NOT DETECTED This assay detects E6/E7 viral messenger RNA (mRNA) from 14 high-risk HPV types (16, 18, 31, 33, 35, 39, 45, 51, 52, 56, 58, 59, 66, 68) HPV testing performed by [employer], [place], [place]. See reference laboratory portion of the EMR for entire report. Clinical Information LMP: Unknown date Previous PAP test: Unknown date/findings Other history: PCOS, abnormal bleeding Material Received ThinPrep-Vaginal/Cervical ----- ------- Signed (signature on file) Anna Richardson 10/29/22 1725 ----- ------- END OF REPORT Angle Higgins MD LAB CYTOLOGY ORDERABLES Final Result [facility] [address] [place] [phone] from Last 3 Months or Most Recently Relevant to Health Maintenance Insurance [facility] [employer] STAND ADULT Care Teams National Account Manager Relationship Specialty Start Date End Date Angle Higgins MD [address] [place] [address] PCP - General Family Medicine 04/25/21
== END 2024-12-03 14:16 | disposition home or self-care (01) ==
LOC: HO.US 14:15
PROVIDERS: PCP Family Medicine; Visit Provider Family Medicine
DX: R74.01 Elevation of levels of liver transaminase levels (principal)
CPT/HCPCS: 76700; 76981

== ENCOUNTER → 2024-12-03 14:21 | Outpatient (BNV) | payer MEDICAID, SELFPAY | PROVIDERS: PCP Family Medicine; Visit Provider Radiology Diagnostic Radiology | DX: R16.0 Hepatomegaly, not elsewhere classified (principal) | CPT/HCPCS: 76700 ==